=== PATIENT | female | born 1950 | race Caucasian/White ===

== ENCOUNTER 2021-01-18 14:30 | Emergency (ER) | payer OTHER, MEDICARE ==
[2021-01-18 14:43] VITALS: PULSE 70; TEMP 97.8; BMI 28.3
[2021-01-18] MEDS ORDERED: LIDOCAINE 5% TOPICAL PATCH TP ONE (15:39)
[2021-01-18] MEDS ORDERED: LIDOCAINE 5% TOPICAL PATCH ONE (15:40)
[2021-01-18 16:57] VITALS: BP 133/80
== END 2021-01-18 16:55 | disposition home or self-care (01) ==
LOC: JER 14:30
DX: S73.101A Unspecified sprain of right hip, initial encounter (principal); S30.0XXA Contusion of lower back and pelvis, initial encounter
CPT/HCPCS: 73523-TC-FY; 99283-25